=== PATIENT | female | born 1985 | race African-American/Black ===

== ENCOUNTER 2017-01-01 21:25 | Emergency (ER) | payer OTHER ==
[2017-01-01] MEDS ORDERED: Meclizine HCl 25 MG TAB ONE (21:53)
[2017-01-01] MEDS ORDERED: Diazepam 5 MG TAB ONE (22:53)
== END 2017-01-01 23:04 | disposition home or self-care (01) ==
LOC: ERS 21:25
DX: H81.399 Other peripheral vertigo, unspecified ear (principal)
CPT/HCPCS: 36416; 93005

== ENCOUNTER 2017-08-20 11:31 | Emergency (ER) | payer OTHER | END 2017-08-20 12:38 | disposition home or self-care (01) | LOC: ERS 11:31 | DX: H60.92 Unspecified otitis externa, left ear (principal) | CPT/HCPCS: 99282 ==

== ENCOUNTER 2019-03-19 19:41 | Emergency (ER) | payer OTHER ==
[2019-03-19 20:30] LABS: #Eosinphils 0.1 thou/uL (0.0-0.7); #Lymphocytes 2.4 thou/uL (1.20-3.40); #Monocytes 0.7 thou/uL (0.11-0.59); #Neutrophils 3.8 thou/uL (1.40-6.50); %Basophils 0.5 % (0.0-1.0); %Eosinophils 1.1 % (0.0-10.0); %Lymphocytes 34.5 % (21.0-51.0); %Monocytes 9.7 % (0.0-10.0); %Neutrophils 54.2 % (42.0-75.0); Hemoglobin 11.4 g/dL (12.0-16.0); Mean Corpuscular HGB CONC 33.1 g/dL (32.0-36.0); Mean Corpuscular Hemoglobin 29.2 pg (27.0-31.0); Mean Corpuscular Volume 88.3 fL (78.0-98.0); Mean Platelet Volume 7.6 fL (7.4-10.4); Platelet Count 303 thou/uL (130-400); RBC Distribution Width 12.8 % (11.5-14.5); Red Blood Cell (RBC) Count 3.89 mill/uL (4.20-5.40); White Blood Cell (WBC) Count 7.1 thou/uL (4.8-10.8)
[2019-03-19 20:34] LABS: ALT (SGPT) 11 U/L (8-55); AST (SGOT) 14 U/L (5-34); Albumin 3.9 g/dL (3.5-5.0); Alkaline Phosphatase 50 U/L (40-110); Anion Gap 8 mmol/L (10-20); BUN (Urea Nitrogen) 6 mg/dL (7.0-18.7); Bilirubin, Total 0.4 mg/dL (0.2-1.2); Calc. Creatinine Clearance 0 mL/min (70-130); Calcium 8.7 mg/dL (7.8-10.44); Carbon Dioxide 29 mmol/L (22-29); Chloride 104 mmol/L (98-107); Estimated GFR-MDRD Greater than 90; Globulin 3.4 g/dL (2.4-3.5); Glucose 80 mg/dL (70-105); Lipase 20 U/L (8-78); Potassium 3.7 mmol/L (3.5-5.1); Protein, Total 7.3 g/dL (6.0-8.3); Sodium 137 mmol/L (136-145)
[2019-03-19 20:53] LABS: Pregnancy Test - Urine (BHCG) Negative (Negative); Pregu Control Background? CLEAR/WHITE (CLR/WHITE); Pregu Control Bar Appear? YES (CONTROL BAR); Specific Gravity 1.024 (1.002-1.036)
[2019-03-19 21:34] LABS: Bilirubin Negative (Negative); Blood, Urine Negative (Negative); Clarity Clear (Clear); Glucose, Urine (Dipstick) Normal (Negative); Leukocyte Negative Leu/uL (Negative); Nitrite Negative (Negative); Protein, Urine (Dipstick) 10 mg/dL (Neg-Trace)
--- NOTE | 2019-03-19 22:15 | ULT ---
US Gallbladder RUQ HISTORY: Right upper quadrant pain COMPARISON: None. FINDINGS: Real-time imaging of the right upper quadrant shows a normal-appearing gallbladder. The com mon duct is 2 mm. The liver shows no focal abnormalities. Pancreas is partially obscured. The right kidney is normal in size and not obstructed. IMPRESSION: Unremarkable right upper quadrant ultrasound.
--- NOTE | 2019-03-21 14:25 | EKG ---
Test Reason : Blood Pressure : / mmHG Vent. Rate : 065 BPM Atrial Rate : 065 BPM P-R Int : 166 ms QRS Dur : 078 ms QT Int : 418 ms P-R-T Axes : 034 033 050 degrees QTc Int : 434 ms Normal sinus rhythm Normal ECG Confirmed by STEFFI BURGOS MD ([id number]), senior technical editor LOLLY RODRIGUEZ ([id number] on 03/21/2019 2:25:07 PM Referred By: Confirmed By:STEFFI BURGOS MD
== END 2019-03-19 23:28 | disposition home or self-care (01) ==
LOC: ERS 19:41
DX: R10.13 Epigastric pain (principal)
CPT/HCPCS: 36415; 76705; 80053; 81003; 81025; 83690; 85025; 93005

== ENCOUNTER 2020-12-05 08:52 | Emergency (ER) | payer OTHER | END 2020-12-05 11:35 | disposition left against medical advice (07) | LOC: ERS 08:52 | DX: Z53.21 Procedure and treatment not carried out due to patient leaving prior to being seen by health care provider (principal) ==

== ENCOUNTER 2023-05-25 08:05 | Emergency (ER) | payer OTHER ==
[2023-05-25] MEDS ORDERED: Dexamethasone 10 MG/ML VIAL ONE (08:24)
== END 2023-05-25 08:28 | disposition home or self-care (01) ==
LOC: ERS 08:05
DX: J02.9 Acute pharyngitis, unspecified (principal); F17.210 Nicotine dependence, cigarettes, uncomplicated; Z79.84 Long term (current) use of oral hypoglycemic drugs; Z79.899 Other long term (current) drug therapy
CPT/HCPCS: 99283; J1100

== ENCOUNTER 2023-08-19 15:13 | Outpatient (CLI) | payer OTHER | END 2023-08-19 15:14 | disposition home or self-care (01) | LOC: DTY/OP 15:13 | PROVIDERS: ATTEND Student in an Organized Health Care Education/Training Program | DX: E66.01 Morbid (severe) obesity due to excess calories (principal) | CPT/HCPCS: 97802 ==

== ENCOUNTER 2023-09-16 15:48 | Outpatient (CLI) | payer OTHER | END 2023-09-16 15:49 | disposition home or self-care (01) | LOC: DTY/OP 15:48 | PROVIDERS: ATTEND Student in an Organized Health Care Education/Training Program | DX: E66.01 Morbid (severe) obesity due to excess calories (principal) | CPT/HCPCS: 97802 ==